=== PATIENT | female | born 1945 | race Caucasian/White ===

== ENCOUNTER 2017-11-12 15:33 | Outpatient (CLI) | payer OTHER | END 2017-11-12 17:00 | disposition home or self-care (01) | LOC: SONOGRAMA 15:33 | DX: M76.61 Achilles tendinitis, right leg (principal) ==

== ENCOUNTER 2018-02-11 12:00 | Outpatient (CLI) | payer OTHER | END 2018-02-11 12:09 | disposition home or self-care (01) | LOC: MAMO-SONO 12:00 | DX: Z12.31 Encounter for screening mammogram for malignant neoplasm of breast (principal); Z87.898 Personal history of other specified conditions; R92.0 Mammographic microcalcification found on diagnostic imaging of breast ==

== ENCOUNTER 2020-08-03 13:09 | Outpatient (CLI) | payer OTHER | END 2020-08-03 13:30 | disposition home or self-care (01) | LOC: MAMO-SONO 13:09 | PROVIDERS: ATTEND Plastic Surgery | DX: Z12.31 Encounter for screening mammogram for malignant neoplasm of breast (principal); N64.1 Fat necrosis of breast ==